=== PATIENT | female | born 1950 | race Caucasian/White ===

== ENCOUNTER 2016-04-11 10:00 | Day surgery (SDC) | payer MEDICARE, OTHER ==
[~2016-04-11] VITALS: Ht 167.6 cm; Wt 79.9 kg
[~2016-04-11 10:00] MED LIST: ATIVAN 1MG T1 MG/TAB PO; COZAAR 50MG50 MG/TAB PO; CYMBALTA 60MG60 MG; CYMBALTA 60MG60 MG PO; DYAZIDE 25 MG-31 CAP PO; HCTZ12.5TAB PO; LEVAQUIN 5500 MG/TA1 PO; LORAZEPAM1 MG PO; MAGIC MOUTH PO; MICRO-K 1010 MEQ; NORCO 325 MG-51 TAB; NORCO 325 MG-7.1 TAB PO; OXYCONTIN80 MG PO; PHENERGAN 25 TA25 MG PO; PREMARIN0.625 MG PO; PRILOSEC 20MG20 MG PO; SINGULAIR 110 MG/TAB PO; TYLENOL 500MG500 MG PO; XOLAIR150 MG SQ; ZYRTEC 10MG10 MG PO
[2016-04-11 10:38] VITALS: BP 105/78; PULSE 103; TEMP 97.4
[2016-04-11] MEDS ORDERED: XOLAIR150 MG SQ (10:52)
[2016-04-11 12:20] VITALS: BP 92/67; PULSE 94; TEMP 97.4
[2016-04-11 12:35] VITALS: BP 92/69; PULSE 84
[2016-04-11 12:50] VITALS: BP 109/85; PULSE 77
[2016-04-11 13:42] VITALS: BP 103/61; PULSE 85
[2016-05-19] MEDS ORDERED: REGLAN 10MG10 MG/TAB PO (12:29)
== END 2016-04-11 13:43 | disposition home or self-care (01) ==
LOC: SDCO 10:00
DX: K21.0 Gastro-esophageal reflux disease with esophagitis (principal); K44.9 Diaphragmatic hernia without obstruction or gangrene; R12 Heartburn; R05 Cough; R13.10 Dysphagia, unspecified
CPT/HCPCS: OP; J2250; J3010; J7030

== ENCOUNTER → 2016-04-14 | Outpatient (CLI) | payer MEDICARE, OTHER ==
[~2016-04-14] MED LIST changes: +REGLAN 10MG10 MG/TAB PO
== END ==
LOC: COL.RAD
DX: K21.9 Gastro-esophageal reflux disease without esophagitis (principal); R12 Heartburn; R05 Cough; R13.10 Dysphagia, unspecified; K44.9 Diaphragmatic hernia without obstruction or gangrene
CPT/HCPCS: A9541

== ENCOUNTER 2016-05-02 14:30 | Outpatient (RCR) | payer MEDICARE, OTHER ==
[2016-02-08 14:30] VITALS: BP 135/80; PULSE 86; TEMP 97.9
[2016-02-22 13:46] VITALS: BP 128/66; PULSE 93; TEMP 97.4
[2016-03-10 13:58] VITALS: BP 149/89; PULSE 89; TEMP 98.1
[2016-03-25 14:26] VITALS: BP 124/77; PULSE 104; TEMP 98.5
[2016-04-15 15:13] VITALS: BP 132/81; PULSE 102; TEMP 97.6
[~2016-05-02] VITALS: Ht 167.6 cm; Wt 72.7 kg
[~2016-05-02 14:30] MED LIST changes: -REGLAN 10MG10 MG/TAB PO
[2016-05-02 14:54] VITALS: BP 127/73; PULSE 104; TEMP 97.7
[2016-05-19] MEDS ORDERED: REGLAN 10MG10 MG/TAB PO (12:29)
== END 2016-05-08 | disposition home or self-care (01) ==
LOC: EUO
DX: J45.40 Moderate persistent asthma, uncomplicated (principal); R76.0 Raised antibody titer
CPT/HCPCS: J2357

== ENCOUNTER → 2016-05-19 | Outpatient (CLI) | payer MEDICARE, OTHER ==
[~2016-05-19] MED LIST changes: +REGLAN 10MG10 MG/TAB PO
== END ==
LOC: COL.RAD 11:00
DX: K44.9 Diaphragmatic hernia without obstruction or gangrene (principal); K21.9 Gastro-esophageal reflux disease without esophagitis; K22.4 Dyskinesia of esophagus; K22.70 Barrett's esophagus without dysplasia; R06.00 Dyspnea, unspecified; R05 Cough

== ENCOUNTER 2016-08-05 13:00 | Outpatient (RCR) | payer MEDICARE, OTHER ==
[2016-05-19 12:30] VITALS: BP 111/69; PULSE 102; TEMP 97.4
[2016-06-02 13:41] VITALS: BP 132/84; PULSE 81; TEMP 97.8
[2016-06-16 14:09] VITALS: BP 153/92; PULSE 97; TEMP 98
[2016-07-01 14:44] VITALS: BP 139/82; PULSE 80; TEMP 98.1
[2016-07-22 14:07] VITALS: BP 115/67; PULSE 79; TEMP 98
[~2016-08-05] VITALS: Ht 167.6 cm; Wt 77.0 kg
[2016-08-05 14:47] VITALS: BP 152/94; PULSE 90; TEMP 98.3
== END 2016-08-17 | disposition still patient (30) ==
LOC: EUO
DX: J45.909 Unspecified asthma, uncomplicated (principal); R76.8 Other specified abnormal immunological findings in serum
CPT/HCPCS: J2357

== ENCOUNTER 2016-10-22 13:16 | Day surgery (SDC) | payer MEDICARE, OTHER ==
[~2016-10-22] VITALS: Ht 167.6 cm; Wt 76.5 kg
[2016-10-22 14:18] VITALS: BP 138/94; PULSE 107; TEMP 98.5
[2016-10-22 15:00] VITALS: BP 125/71; PULSE 84
[2016-10-22 15:15] VITALS: BP 125/82; PULSE 88
[2016-10-22 15:30] VITALS: BP 135/82; PULSE 88
== END 2016-10-22 15:46 | disposition home or self-care (01) ==
LOC: SDCO 13:16
DX: R19.7 Diarrhea, unspecified (principal); K57.30 Diverticulosis of large intestine without perforation or abscess without bleeding; K22.70 Barrett's esophagus without dysplasia; K21.9 Gastro-esophageal reflux disease without esophagitis; I48.91 Unspecified atrial fibrillation; J45.909 Unspecified asthma, uncomplicated; I10 Essential (primary) hypertension; E66.9 Obesity, unspecified; Z68.27 Body mass index [BMI] 27.0-27.9, adult; Z90.49 Acquired absence of other specified parts of digestive tract; Z90.710 Acquired absence of both cervix and uterus
CPT/HCPCS: J2250; J2405; J3010; J7030

== ENCOUNTER 2016-11-14 14:00 | Outpatient (RCR) | payer MEDICARE, OTHER ==
[2016-09-05 14:05] VITALS: BP 132/89; PULSE 96; TEMP 98.1
[2016-09-19 14:59] VITALS: BP 153/75; PULSE 84; TEMP 97.9
[2016-10-07 14:02] VITALS: BP 150/86; PULSE 93; TEMP 98.5
[2016-10-24 14:20] VITALS: BP 125/81; PULSE 90; TEMP 97.6
[2016-10-31 14:50] VITALS: BP 149/88; PULSE 91; TEMP 97.9
[~2016-11-14] VITALS: Ht 167.6 cm; Wt 78.8 kg
[2016-11-14 15:33] VITALS: BP 144/96; PULSE 96; TEMP 97.8
== END 2016-11-17 ==
LOC: EUO
DX: J45.40 Moderate persistent asthma, uncomplicated (principal); Z79.899 Other long term (current) drug therapy
CPT/HCPCS: J2357

== ENCOUNTER 2017-10-04 12:33 | Emergency (ER) | payer MEDICARE, OTHER ==
[~2017-10-04] VITALS: Ht 167.6 cm; Wt 56.8 kg
[2017-10-04 12:38] VITALS: BP 137/78; PULSE 68; TEMP 97.7
[2017-10-04] MEDS ORDERED: CEPHALEXIN500 M1 PO (13:09)
[2017-10-14] MEDS ORDERED: 00186-0370-20 IH (13:57)
[2017-10-14] MEDS ORDERED: CORDARONE200 MG/TAB PO (13:58)
[2017-10-14] MEDS ORDERED: NEB MC (14:00)
== END 2017-10-04 13:27 | disposition home or self-care (01) ==
LOC: COL.ER 12:33
DX: T81.30XA Disruption of wound, unspecified, initial encounter (principal); I10 Essential (primary) hypertension

== ENCOUNTER → 2017-11-11 | Outpatient (CLI) | payer MEDICARE, OTHER ==
[~2017-11-11] MED LIST changes: +00186-0370-20 IH; +CEPHALEXIN500 M1 PO; +CORDARONE200 MG/TAB PO; +NEB MC
== END ==
LOC: COL.RAD 12:59
DX: K22.2 Esophageal obstruction (principal); K31.89 Other diseases of stomach and duodenum; R05 Cough; Z90.49 Acquired absence of other specified parts of digestive tract

== ENCOUNTER 2017-11-16 12:55 | Day surgery (SDC) | payer MEDICARE, OTHER ==
[~2017-11-16] VITALS: Ht 167.6 cm; Wt 60.8 kg
[2017-11-16 13:23] VITALS: BP 126/76; PULSE 63; TEMP 98.5
[2017-11-16] MEDS ORDERED: PRIL40 PO (13:39)
[2017-11-16 14:30] VITALS: BP 128/66; PULSE 63; TEMP 98.1
[2017-11-16 14:45] VITALS: BP 144/66; PULSE 55
[2017-11-16 15:00] VITALS: BP 116/66; PULSE 57
== END 2017-11-16 15:05 | disposition home or self-care (01) ==
LOC: SDCO 12:55
DX: K21.0 Gastro-esophageal reflux disease with esophagitis (principal); K22.8 Other specified diseases of esophagus; K29.30 Chronic superficial gastritis without bleeding; F32.9 Major depressive disorder, single episode, unspecified; I48.91 Unspecified atrial fibrillation; K21.9 Gastro-esophageal reflux disease without esophagitis; J45.909 Unspecified asthma, uncomplicated; I10 Essential (primary) hypertension; Z88.5 Allergy status to narcotic agent; Z88.0 Allergy status to penicillin; Z88.2 Allergy status to sulfonamides; Z88.8 Allergy status to other drugs, medicaments and biological substances; Z79.82 Long term (current) use of aspirin; Z90.49 Acquired absence of other specified parts of digestive tract; Z90.710 Acquired absence of both cervix and uterus
CPT/HCPCS: J2704; J7030

== ENCOUNTER 2018-01-08 13:00 | Outpatient (RCR) | payer MEDICARE, OTHER ==
[2017-10-14 14:01] VITALS: BP 135/72; PULSE 68; TEMP 98.3
[2017-10-28 13:55] VITALS: BP 125/75; PULSE 60; TEMP 97.7
[2017-11-11 14:25] VITALS: BP 138/69; PULSE 67; TEMP 96.9
[2017-11-25 13:33] VITALS: BP 180/75; PULSE 67; TEMP 97.5
[2017-12-09 14:23] VITALS: BP 131/79; PULSE 63; TEMP 98.2
[2017-12-23 15:36] VITALS: BP 156/94; PULSE 71; TEMP 98.1
[~2018-01-08] VITALS: Ht 167.6 cm; Wt 62.2 kg
[2018-01-08 13:00] VITALS: BP 177/83; PULSE 71; TEMP 97.2
[~2018-01-08 13:00] MED LIST changes: +PRIL40 PO
[2018-01-08] MEDS ORDERED: CARAFATE 1GM1 G PO (13:15)
== END 2018-01-12 | disposition home or self-care (01) ==
LOC: EUO
DX: J45.50 Severe persistent asthma, uncomplicated (principal); R76.0 Raised antibody titer; G47.34 Idiopathic sleep related nonobstructive alveolar hypoventilation; Z79.82 Long term (current) use of aspirin; Z79.899 Other long term (current) drug therapy; Z99.81 Dependence on supplemental oxygen
CPT/HCPCS: J2357

== ENCOUNTER 2018-02-24 13:30 | Outpatient (RCR) | payer MEDICARE, OTHER ==
[2018-01-27 13:58] VITALS: BP 136/56; PULSE 71; TEMP 97.8
[2018-02-09 13:25] VITALS: BP 134/73; PULSE 64; TEMP 97.5
[~2018-02-24] VITALS: Ht 167.6 cm; Wt 61.0 kg
[~2018-02-24 13:30] MED LIST changes: +CARAFATE 1GM1 G PO
[2018-02-24 13:53] VITALS: BP 184/85; PULSE 72; TEMP 97.7
== END 2018-02-24 14:36 | disposition still patient (30) ==
LOC: EUO 13:30
DX: J45.909 Unspecified asthma, uncomplicated (principal); R76.0 Raised antibody titer
CPT/HCPCS: J2357

== ENCOUNTER 2018-06-01 13:30 | Outpatient (RCR) | payer MEDICARE, OTHER ==
[2018-03-09 13:33] VITALS: BP 142/74; PULSE 66; TEMP 97.8
[2018-03-24 14:00] VITALS: BP 142/83; PULSE 70; TEMP 98.2
[2018-04-06 13:44] VITALS: BP 139/69; PULSE 62; TEMP 97.5
[2018-04-20 14:24] VITALS: BP 139/75; PULSE 65; TEMP 97.3
[2018-05-04 13:42] VITALS: BP 154/77; PULSE 62; TEMP 97
[2018-05-18 13:33] VITALS: BP 130/75; PULSE 64; TEMP 98.4
[~2018-06-01] VITALS: Ht 167.6 cm; Wt 62.0 kg
[2018-06-01 13:25] VITALS: BP 171/84; PULSE 64; TEMP 98.4
[~2018-06-01 13:30] MED LIST changes: +TRELEGY ELLIPT1 EACH IH
== END 2018-06-07 | disposition still patient (30) ==
LOC: EUO
DX: J45.50 Severe persistent asthma, uncomplicated (principal); R76.0 Raised antibody titer; Z79.899 Other long term (current) drug therapy
CPT/HCPCS: J2357

== ENCOUNTER → 2018-08-26 | Outpatient (CLI) | payer MEDICARE, OTHER | LOC: COL.RAD 10:30 | DX: Z01.812 Encounter for preprocedural laboratory examination (principal); R10.12 Left upper quadrant pain; Z90.49 Acquired absence of other specified parts of digestive tract; Z98.1 Arthrodesis status; Z90.710 Acquired absence of both cervix and uterus; Z98.890 Other specified postprocedural states | CPT/HCPCS: Q9967 ==

== ENCOUNTER 2018-09-13 14:00 | Outpatient (RCR) | payer MEDICARE, OTHER ==
[2018-06-15 13:16] VITALS: BP 142/84; PULSE 64; TEMP 98.2
[2018-06-29 13:30] VITALS: BP 130/70; PULSE 67; TEMP 98.1
[2018-07-15 13:18] VITALS: BP 153/82; PULSE 71; TEMP 98.2
[2018-07-29 13:18] VITALS: BP 115/59; PULSE 63; TEMP 97.2
[2018-08-13 13:26] VITALS: BP 138/92; PULSE 62; TEMP 97.4
[2018-08-27 13:34] VITALS: BP 141/77; PULSE 62; TEMP 97.6
[~2018-09-13] VITALS: Ht 167.6 cm; Wt 63.0 kg
[2018-09-13 14:17] VITALS: BP 110/57; PULSE 64; TEMP 97.5
== END 2018-09-13 14:33 | disposition home or self-care (01) ==
LOC: EUO 14:00
DX: J45.50 Severe persistent asthma, uncomplicated (principal); Z79.899 Other long term (current) drug therapy
CPT/HCPCS: J2357

== ENCOUNTER 2018-12-27 13:00 | Outpatient (RCR) | payer MEDICARE, OTHER ==
[2018-10-04 15:39] VITALS: BP 137/69; PULSE 66; TEMP 98.2
[2018-11-03 10:15] VITALS: BP 143/72; PULSE 65; TEMP 97.3
[2018-11-17 11:35] VITALS: BP 134/75; PULSE 64; TEMP 98.2
[2018-12-01 13:13] VITALS: BP 148/70; PULSE 62; TEMP 97.7
[~2018-12-27] VITALS: Ht 167.6 cm; Wt 59.0 kg
[2018-12-27 12:25] VITALS: BP 135/89; PULSE 68; TEMP 97.9
[~2018-12-27 13:00] MED LIST changes: +CARAFATE S1 GM/10 ML PO; +NORCO 325 MG-51 TAB PO
== END 2018-12-27 13:04 | disposition home or self-care (01) ==
LOC: EUO 13:00
DX: J45.50 Severe persistent asthma, uncomplicated (principal); R76.0 Raised antibody titer; Z79.899 Other long term (current) drug therapy
CPT/HCPCS: J2357

== ENCOUNTER 2019-02-25 13:00 | Outpatient (RCR) | payer MEDICARE, OTHER ==
[2019-01-13 13:38] VITALS: BP 136/72; PULSE 60; TEMP 97.3
[2019-01-26 12:59] VITALS: BP 145/66; PULSE 61; TEMP 97.3
[2019-02-09 13:05] VITALS: BP 133/72; PULSE 62; TEMP 97.3
[~2019-02-25] VITALS: Ht 167.6 cm; Wt 56.2 kg
[~2019-02-25 13:00] MED LIST changes: +DUPIXENT300 MG/2 M SQ; +ELIDEL1% PO
[2019-02-25 13:18] VITALS: BP 139/73; PULSE 65; TEMP 98.1
== END 2019-03-01 16:00 | disposition home or self-care (01) ==
LOC: EUO 13:00
DX: J45.50 Severe persistent asthma, uncomplicated (principal); R76.0 Raised antibody titer; Z79.899 Other long term (current) drug therapy
CPT/HCPCS: J2357

== ENCOUNTER 2019-03-10 11:14 | Inpatient (IN) | payer MEDICARE, OTHER ==
[~2019-03-10] VITALS: Ht 167.6 cm; Wt 53.5 kg
[~2019-03-10 11:14] MED LIST changes: -ASPIRIN E.C. 8181 MG PO; -PROMETHAZINE12.5 M5 PO
[2019-03-10 11:48] LABS: BASO % 0.5 % (0.0-2.0); EOS # 0.1 (0.0-0.7); EOS % 1.2 % (0-4.0); HEMATOCRIT 38.9 % (37.0-47.0); HEMOGLOBIN 12.4 g/dl (12.5-16.0); LYMPH # 1.4 (1.2-3.4); LYMPH % 16.8 % (20.0-51.0); MEAN CELL VOLUME 84 fl (80.0-100.0); MEAN CORPUSCULAR HEMOGLOBIN 27 pg (27.0-31.0); MEAN CORPUSCULAR HGB CONC 32 g/dl (33.0-37.0); MEAN PLATELET VOLUME 9.5 fl (7.4-10.4); MONO # 0.7 (0.1-0.6); MONO % 8.9 % (1.7-9.3); PLATELET COUNT 311 K/mm3 (130-400); RED BLOOD COUNT 4.62 M/mm3 (4.10-5.30); REDCELL DISTRIBUTION WIDTH-CV 15.9 % (11.5-14.5)
[2019-03-10 11:55] LABS: ALBUMIN 4.5 gm/dL (3.5-5.0); BILIRUBIN,TOTAL 0.4 mg/dL (0.0-1.0); CALCIUM 9.5 mg/dL (8.4-10.2); CREATININE, serum 0.77 (0.52-1.25); INR 0.9 (0.8-3.0); PROTHROMBIN TIME 10.1 SECONDS (9.7-12.8); TOTAL PROTEIN 7.7 gm/dL (6.4-8.2)
[2019-03-10 16:54] VITALS: BP 153/74; PULSE 67; TEMP 98.1
--- NOTE | 2019-03-10 17:00 | NUR ---
Pt arrived to room 357 at this time. She is A/O x4. Her breathing is even and unlabored on RA. Pt reports increased weakness and dizziness, assisted to the bed. No pain at this time. Pt reports N/V. Tele in place. IV to LAC intact no redness visualized. POC discussed with patient who verbalizes understanding. No needs at this time. Call light within reach.
--- NOTE | 2019-03-10 18:41 | NUR ---
Attempted to call consult to Dr. Garcia, no answer and mailbox full.
--- NOTE | 2019-03-10 19:00 | NUR ---
PT C/O NAUSEA- SEE MAR FOR ZOFRAN. TRYING TO EAT MEAL EVEN THOUGH NAUSEASTED. GAVE BROTH INSTEAD. ENC TO KEEP HOB ELEVATED. C/O CONTINUED PERSISTENT WORRELL/ SEE NEUROCHECK. TOO SOON FOR PAIN MED. CALL LIGHT IN REACH
[2019-03-10 19:25] VITALS: BP 135/69; PULSE 59; TEMP 98.1
[2019-03-10 23:07] VITALS: BP 164/76; PULSE 61; TEMP 98
[2019-03-11] VITALS (11 sets, daily range): BP systolic 139–172; BP diastolic 58–366; PULSE 59–70; TEMP 98.1–98.6
--- NOTE | 2019-03-11 00:30 | NUR ---
NPO AT THIS TIME. SEE MAR FOR PAIN /NAUSEA MED.
--- NOTE | 2019-03-11 01:00 | NUR ---
UA OBTAINED ENT TO LAB
[2019-03-11 02:06] LABS: AMORPHOUS CRYSTAL Present /uL; MUCOUS Present /lpf; PH 5 (5-8); SQUAMOUS EPITHELIAL 0-2 /hpf; URINE APPEARANCE Hazy; URINE BACTERIA Occasional /hpf; URINE BILIRUBIN Negative (NEGATIVE); URINE BLOOD Negative (NEGATIVE); URINE COLOR Yellow; URINE GLUCOSE Negative (NEGATIVE); URINE KETONE 1+ (NEGATIVE); URINE LEUKOCYTE ESTERASE Trace (NEGATIVE); URINE NITRATE Positive (NEGATIVE); URINE PROTEIN(semi-quant) Negative (NEGATIVE); URINE UROBILINOGEN Negative (NEGATIVE); URINE WBC 20-50 /hpf
[2019-03-11 02:08] LABS: COLLECTION METHOD CLEAN CATCH
--- NOTE | 2019-03-11 02:30 | NUR ---
INFORMED ROSA BRUSHHOME [employer]AT[employer] TECHNICIAN OF [facility] [place]APIN [place] [address]/11. HE WILL NOTIFY OR IN AM.
--- NOTE | 2019-03-11 04:00 | NUR ---
PT C/O HAD CONTINUED NAUSEA WITH SMALL CLEAR EMEISIS. TOO SOON FOR ZOFRAN.
--- NOTE | 2019-03-11 06:27 | NUR ---
PT CONTINUES N/V. NEW ORDER FRO PHENERGAN IV. SEE MAR.
[2019-03-11 07:26] LABS: MEAN CELL VOLUME 86 fl (80.0-100.0); MEAN CORPUSCULAR HGB CONC 31 g/dl (33.0-37.0); MEAN PLATELET VOLUME 9.9 fl (7.4-10.4); RED BLOOD COUNT 3.73 M/mm3 (4.10-5.30); REDCELL DISTRIBUTION WIDTH-CV 15.9 % (11.5-14.5)
[2019-03-11 07:37] LABS: ALBUMIN 3.4 gm/dL (3.5-5.0); CHOLESTEROL RISK RATIO 1.7; CREATININE, serum 0.5 (0.52-1.25); MAGNESIUM 1.5 mg/dL (1.6-2.3); POTASSIUM 3.5 mmol/L (3.4-5.0); TOTAL PROTEIN 6.1 gm/dL (6.4-8.2)
[2019-03-11 07:43] LABS: HEMOGLOBIN 9.9 g/dl (12.5-16.0); MEAN CORPUSCULAR HEMOGLOBIN 27 pg (27.0-31.0)
[2019-03-11 07:44] LABS: PLATELET COUNT 154 K/mm3 (130-400)
[2019-03-11 07:48] LABS: TROPONIN-I 0.066 ng/mL (0.000-0.035)
[2019-03-11 07:52] LABS: BILIRUBIN UNCONJUGATED 0.2 mg/dL (0.0-1.1); BILIRUBIN,TOTAL 0.2 mg/dL (0.0-1.0)
[2019-03-11 08:44] LABS: BAND 5 % (0-10); BASOPHIL 1 % (0-2); EOSINOPHIL 3 % (0-4); LYMPHOCYTE 18 % (20.0-51.0); NEUTROPHILS 69 % (42.0-75.2); PLATELET ESTIMATE NORMAL (NORMAL)
--- NOTE | 2019-03-11 14:15 | NUR ---
Patient to room 358 from procedure. Patient tolerated well. Monitoring post op VS. VSS. Patiet standby assist to bathroom. No further needs expressed from patient. Call light within reach
--- NOTE | 2019-03-11 18:22 | NUR ---
Patient sitting up in bed. A&Ox3. Reporting pain in lower throat/esophagus. Pain medication given as requested. VSS. IV CDI, fluids infusing. Patient assisted with standby/1 assist to bathroom. No further needs expressed from patient. Call light within reach
--- NOTE | 2019-03-11 19:30 | NUR ---
Patient sitting up in bed, complaints of pain in esophagus, neck and radiating to left arm. VS assessed and BP hypertensive. O@ and HR stable. MARY Monge notified and orders placed. Nurses at the bedside. Call light within reach
--- NOTE | 2019-03-11 20:00 | NUR ---
Patients VS stable. Pain in esophagus has decreased "stated its better than before" Patient has no complaints of nausea and no more vomitting. Call light within reach.
--- NOTE | 2019-03-11 21:07 | NUR ---
Pt in room, resting in bed. Alert and oriented with vss now stable. During shift change, was vomitting and c/o severe pain in throat due to potassium. reglan and morphine given. pt now ok and states she feels a lot better. no further episodes of vomitting. has ns running at 125 in right forearm. npo due to pain with swallowing. denies needs at this time. call light within reach, will continue to monitor. will follow up on next potassium level.
[2019-03-11 22:06] LABS: CALCIUM 7.9 mg/dL (8.4-10.2); CREATININE, serum 0.46 (0.52-1.25); MAGNESIUM 1.7 mg/dL (1.6-2.3)
--- NOTE | 2019-03-11 23:57 | NUR ---
Pt c/o throat pain (same pain she has been having) and burning and nausea. PRN phenergan and morphine give. will continue to monitor
--- NOTE | 2019-03-12 01:23 | NUR ---
Pt sleeping in bed, does not seem to be in pain. Call light within reach, will continue to montor
--- NOTE | 2019-03-12 04:09 | NUR ---
Pt woke up feeling severely nauseous, is spitting up and c/o chest/throat burning and pain. same pain she has been having but states it is worse than last time. prn zofran given as phenergan too early and prn morphine given. pt states this helps for a short period of time but wears off.
[2019-03-12 04:15] VITALS: BP 157/72; PULSE 66; TEMP 98
--- NOTE | 2019-03-12 08:36 | NUR ---
PATIENT ASSESSMENT COMPLETED. SHE COMPLAINS OF PAIN 2MG PRN MORPINE PROVIDED. SHE IS ALSO HAVING TERRIBLE NAUSEA NO MEDICATION CAN BE PROVIDED AT THIS TIME. ASSISTED TO THE RESTROOM AND TOOK ORAL PILLS, SHE THEN STARTED TO DRY HEAVE WITH MINIMAL CLEAR VOMIT. COMFORT PROVIDED AND ASSISTED LAYING BACK DOWN.
[2019-03-12 08:46] VITALS: BP 129/68; PULSE 59; TEMP 97.8
--- NOTE | 2019-03-12 10:30 | NUR ---
PATIENT STILL REPORTS HVING PAIN BUT APPEARS TO BE ALOT MORE COMFORTABLE. PRN ZOFRAN IS PROVIDED. WILL RETURN FOR EVAL
[2019-03-12 12:00] LABS: BASO % 0.5 % (0.0-2.0); EOS # 0.1 (0.0-0.7); EOS % 2.8 % (0-4.0); GRAN % 69.2 % (42.2-75.2); HEMOGLOBIN 11.6 g/dl (12.5-16.0); LYMPH # 0.8 (1.2-3.4); LYMPH % 17.6 % (20.0-51.0); MEAN CELL VOLUME 84 fl (80.0-100.0); MEAN CORPUSCULAR HEMOGLOBIN 27 pg (27.0-31.0); MEAN CORPUSCULAR HGB CONC 32 g/dl (33.0-37.0); MEAN PLATELET VOLUME 9.4 fl (7.4-10.4); MONO # 0.4 (0.1-0.6); MONO % 9.7 % (1.7-9.3); PLATELET COUNT 202 K/mm3 (130-400); RED BLOOD COUNT 4.36 M/mm3 (4.10-5.30); REDCELL DISTRIBUTION WIDTH-CV 15.8 % (11.5-14.5)
[2019-03-12 12:02] LABS: HEMATOCRIT 36.8 % (37.0-47.0)
[2019-03-12 12:07] LABS: BILIRUBIN,TOTAL 0.4 mg/dL (0.0-1.0); CALCIUM 8.4 mg/dL (8.4-10.2); CREATININE, serum 0.39 (0.52-1.25); MAGNESIUM 1.5 mg/dL (1.6-2.3); POTASSIUM 3.7 mmol/L (3.4-5.0)
[2019-03-12 12:11] VITALS: BP 137/72; PULSE 61; TEMP 98.6
--- NOTE | 2019-03-12 12:14 | NUR ---
PRN PHENERGAN AND MORPHINE GIVEN AT THIS TIME
--- NOTE | 2019-03-12 13:01 | NUR ---
Plan: Patient plans to return to [place] with her spouse Dickson . Assess: SW met with patient in room about dc. Patient reports that her pcp is Dr. Dontrell Perez. Patient denies the use of any DME. Patient reports that she uses [facility] for RX. Patient report she is concerned that she will continue to vomit. Patient reports that her spouse will transport her home. Patient reports that her is her DPOA. Action: [facility]I edu of resources and community supports. No additional concerns identified.
[2019-03-12 16:04] VITALS: BP 170/74; PULSE 65; TEMP 97.4
--- NOTE | 2019-03-12 16:15 | NUR ---
PATIENT IS VERY NAUSEATED AFTER DRINKING THE GI COCKTAIL. PRN MORPHINE AND ZOFRAN GIVEN. SHE THEN STARTS TO VOMIT COMFORT IS PROVIDED ALONG WITH A WARM WASH CLOTH.
--- NOTE | 2019-03-12 18:00 | NUR ---
PATIENT SLEEPING IN BED. NO SIGNS OF DISTRESS NOTED AT THIS TIME.
[2019-03-12 23:05] VITALS: BP 176/88; PULSE 65; TEMP 97.8
[2019-03-13 04:00] VITALS: BP 158/67; PULSE 59; TEMP 97.9
--- NOTE | 2019-03-13 08:11 | NUR ---
PATIENT ASSESSMENT COMPLETED.SHE COMPLAINS OF PAIN AND NAUSEA. PRN MORPHINE AND PHENERGAN GIVEN AT THIS TIME. SHE DOES GET A LITTLE MORE NAUSEATED BUT DOESN'T VOMIT YET AT THIS TIME.
[2019-03-13 08:24] VITALS: BP 138/70; PULSE 79; TEMP 98.2
[2019-03-13 11:00] VITALS: BP 158/73; PULSE 61; TEMP 98.2
--- NOTE | 2019-03-13 13:58 | NUR ---
PRN PHENERGAN AND MORPHINE GIVEN AT THIS TIME FOR COMPLAINTS.
[2019-03-13 17:15] VITALS: BP 151/72; PULSE 68; TEMP 98.3
--- NOTE | 2019-03-13 19:40 | NUR ---
ASSSESSMENT COMPLETE. RESTING IN BED. C/O PAIN AND NAUSEA. PRN ZOFRAN AND MORPHINE ADMIN. NPO. DENIES OTHER NEEDS AT THIS TIME.
[2019-03-13 23:14] VITALS: BP 171/75; PULSE 67; TEMP 98
--- NOTE | 2019-03-14 01:49 | NUR ---
03/13/2019 @1942 notified provider that patient requested lower dose of phenergan because patient felt the 25mg dose "made {her} sick".
[2019-03-14 05:53] VITALS: BP 158/72; PULSE 64; TEMP 97.4
[2019-03-14 07:27] LABS: BASO % 0.4 % (0.0-2.0); EOS # 0.1 (0.0-0.7); GRAN # 4.3 (1.4-6.5); GRAN % 79.1 % (42.2-75.2); HEMOGLOBIN 10.7 g/dl (12.5-16.0); LYMPH # 0.5 (1.2-3.4); LYMPH % 9.4 % (20.0-51.0); MEAN CELL VOLUME 86 fl (80.0-100.0); MEAN CORPUSCULAR HEMOGLOBIN 27 pg (27.0-31.0); MEAN CORPUSCULAR HGB CONC 31 g/dl (33.0-37.0); MONO # 0.5 (0.1-0.6); MONO % 8.9 % (1.7-9.3); PLATELET COUNT 169 K/mm3 (130-400); RED BLOOD COUNT 3.98 M/mm3 (4.10-5.30); REDCELL DISTRIBUTION WIDTH-CV 15.8 % (11.5-14.5)
[2019-03-14 07:31] LABS: HEMATOCRIT 34.1 % (37.0-47.0)
[2019-03-14 07:35] LABS: CALCIUM 8.4 mg/dL (8.4-10.2); CREATININE, serum 0.41 (0.52-1.25); POTASSIUM 3.5 mmol/L (3.4-5.0)
[2019-03-14 09:39] VITALS: BP 161/73; PULSE 70; TEMP 98.1
--- NOTE | 2019-03-14 11:02 | NUR ---
Assessment completed, alert/oriened, vital signs stable, reports continued N/V and discomfort, no emesis observed / overnight houseperson reported scant amount of bile colored emesis during the night, continuing pain meds and antiemetics as needed, replacing potassium per protocol,awaiting ST re-evaluation for further plan of care, heart RRR, lungs CTA, patient denies new needs at this time, will continue to monitor
[2019-03-14 12:46] VITALS: BP 144/71; PULSE 61; TEMP 98.4
[2019-03-14] MEDS ORDERED: ASPIRIN E.C. 8181 MG PO (13:20)
[2019-03-14] MEDS ORDERED: PROMETHAZINE12.5 M5 PO (13:28)
[2019-03-14] MEDS ORDERED: NORCO 325 MG-51 TAB PO (13:30)
--- NOTE | 2019-03-14 16:06 | NUR ---
Discharge orders discussed with the patient and her , instructed to follow up with PCP as we have scheduled for her, instructed to take meds as prescribed/ scripts provided for new meds, instructed to advance diet slowly and stick to soft foods, IV and tele removed, she did not want to stay and finish her last 3 bags of Potassium as they have a decent drive to get home and wanted to get there before dark, She is leaving with her , i personayll escorted her out an assisted her into their vehicle
[2019-03-28] MEDS ORDERED: ZOFRAN 4MG T4 MG/TAB PO (13:49)
== END 2019-03-14 16:08 | disposition home or self-care (01) | DRG 393 ==
LOC: COL.ER 11:14 → MEDICAL 12:50
PROVIDERS: Emergency Medicine; Internal Medicine Gastroenterology; Nurse Practitioner Family; Physician Assistant; ADMIT Hospitalist
PROC: 0DJ08ZZ Inspection of Upper Intestinal Tract, Via Natural or Artificial Opening Endoscopic (ICD-10-PCS; principal; 2019-03-11 12:00)
DX: K91.89 Other postprocedural complications and disorders of digestive system (principal); I21.4 Non-ST elevation (NSTEMI) myocardial infarction; E43 Unspecified severe protein-calorie malnutrition; N39.0 Urinary tract infection, site not specified; K21.0 Gastro-esophageal reflux disease with esophagitis; K29.30 Chronic superficial gastritis without bleeding; I45.10 Unspecified right bundle-branch block; R74.8 Abnormal levels of other serum enzymes; E86.0 Dehydration; F41.9 Anxiety disorder, unspecified; B96.20 Unspecified Escherichia coli [E. coli] as the cause of diseases classified elsewhere; I08.1 Rheumatic disorders of both mitral and tricuspid valves; I48.0 Paroxysmal atrial fibrillation; J45.909 Unspecified asthma, uncomplicated; D64.9 Anemia, unspecified; F32.9 Major depressive disorder, single episode, unspecified; Z90.49 Acquired absence of other specified parts of digestive tract; Z90.710 Acquired absence of both cervix and uterus; Z88.0 Allergy status to penicillin; Z88.2 Allergy status to sulfonamides; Z88.8 Allergy status to other drugs, medicaments and biological substances; Z88.5 Allergy status to narcotic agent; Z91.048 Other nonmedicinal substance allergy status; Z85.828 Personal history of other malignant neoplasm of skin; E83.42 Hypomagnesemia
CPT/HCPCS: 99222-AI; 99231-AI; 99232-AI; 99239; A4216; G0378; J0696; J1650; J2270; J2405; J2550; J2704; J3475; J3480; J7030; Q9967

== ENCOUNTER → 2019-03-10 | Outpatient (CLI) | payer MEDICARE, OTHER ==
[~2019-03-10] MED LIST changes: +ASPIRIN E.C. 8181 MG PO; +PROMETHAZINE12.5 M5 PO
== END ==
LOC: COL.RAD 10:24
DX: K21.9 Gastro-esophageal reflux disease without esophagitis (principal); Z98.890 Other specified postprocedural states

== ENCOUNTER 2019-06-13 13:30 | Outpatient (RCR) | payer MEDICARE, OTHER ==
[2019-03-28 13:56] VITALS: BP 137/67; PULSE 72; TEMP 97.7
[2019-04-11 13:56] VITALS: BP 148/75; PULSE 98; TEMP 97.4
[2019-04-22 14:21] VITALS: BP 140/80; PULSE 67; TEMP 97.4
[2019-05-09 14:34] VITALS: BP 138/78; PULSE 85; TEMP 97.3
[2019-05-23 14:19] VITALS: BP 137/87; PULSE 70; TEMP 98
[~2019-06-13] VITALS: Ht 167.6 cm; Wt 52.7 kg
[~2019-06-13 13:30] MED LIST changes: +ASPIRIN E.C. 8181 MG PO; +PROMETHAZINE12.5 M5 PO; +ZOFRAN 4MG T4 MG/TAB PO
[2019-06-13 13:36] VITALS: BP 136/70; PULSE 66; TEMP 97.3
[2019-06-27] MEDS ORDERED: XOLAIR150 MG SQ (13:56)
== END 2019-06-26 | disposition still patient (30) ==
LOC: EUO
DX: J45.50 Severe persistent asthma, uncomplicated (principal); R76.0 Raised antibody titer; Z79.899 Other long term (current) drug therapy
CPT/HCPCS: J2357

== ENCOUNTER 2019-09-23 13:30 | Outpatient (RCR) | payer MEDICARE, OTHER ==
[2019-06-27 13:59] VITALS: BP 117/71; PULSE 65; TEMP 97.4
[2019-07-15 14:38] VITALS: BP 134/78; PULSE 91; TEMP 98.4
[2019-08-12 13:51] VITALS: BP 137/74; PULSE 58; TEMP 98.1
[2019-09-09 13:54] VITALS: BP 120/71; PULSE 71; TEMP 98.1
[~2019-09-23] VITALS: Ht 167.6 cm; Wt 53.8 kg
[2019-09-23 13:18] VITALS: BP 154/84; PULSE 76; TEMP 99
[~2019-09-23 13:30] MED LIST changes: +PREDNISONE10 MG PO
== END 2019-09-25 | disposition still patient (30) ==
LOC: EUO
DX: J45.50 Severe persistent asthma, uncomplicated (principal); R76.0 Raised antibody titer; Z79.899 Other long term (current) drug therapy
CPT/HCPCS: J2357

== ENCOUNTER 2019-11-21 14:00 | Outpatient (RCR) | payer MEDICARE, OTHER ==
[2019-10-17 14:25] VITALS: BP 148/88; PULSE 76; TEMP 97.4
[2019-11-04 14:28] VITALS: BP 180/90; PULSE 71; TEMP 98
[~2019-11-21] VITALS: Ht 167.6 cm; Wt 67.3 kg
== END 2019-12-01 11:31 | disposition home or self-care (01) ==
LOC: EUO 14:00
DX: J45.50 Severe persistent asthma, uncomplicated (principal); R76.0 Raised antibody titer; Z79.899 Other long term (current) drug therapy
CPT/HCPCS: J2357